=== PATIENT | female | born 1965 | race Caucasian/White ===

== ENCOUNTER 2019-04-23 00:33 | Day surgery (SDC) | payer BC, SELFPAY ==
[2019-04-17 10:43] VITALS: BMI 25.7
[2019-04-23 08:57] VITALS: BP 120/88; PULSE 99; RESP 20; TEMP 36.7; O2SAT 100
--- NOTE | 2019-04-23 08:57 | P.HP_ITS ---
History of Present Illness History of Present Illness Consent: Risks, benefits, and alternatives have been discussed and questions answered. Patient agrees to proceed with procedure. Chief complaint: Neoplasm Screening Narrative: Angela Marquez is a 54 year old female Referred for screening colonoscopy [facility] Family History Family History Mother Family history of glaucoma Father Hypertension Other Family history of alcoholism Family history of gout Family history of malignant neoplasm Family history of mental disorder Social History Social History Smoking status: Never smoker Alcohol intake: current Meds Home Medications and Allergies Home Medications Medication Instructions Recorded Confirmed Type fluoxetine 20 mg capsule 20 mg PO DAILY #90 cap 12/27/18 04/17/19 Rx benzonatate 200 mg capsule 200 mg PO TID PRN #30 cap 02/27/19 04/17/19 Rx loratadine 10 mg tablet 10 mg PO DAILY 02/27/19 04/17/19 History polyethylene glycol 3350 17 17 gm PO DAILY 02/27/19 History gram/dose oral powder ranitidine HCl 150 mg tablet 150 mg PO BID tablet 02/27/19 04/17/19 History promethazine 6.25 mg-codeine 10 5 ml PO Q6H PRN #150 ml 02/28/19 04/17/19 Rx mg/5 mL syrup Allergies Allergy/AdvReac Type Severity Reaction Status Date / Time No Known Allergies Allergy Verified 04/23/19 08:56 Exam Resp: Auscultation: clear to auscultation bilaterally Cardio: Rate: regular rate Rhythm: regular rhythm GI: GI Palp: Yes Soft to palpation and No Tenderness to palpation present (GI) Assessment and Plan Assessment and plan (1) Colon cancer screening: Code(s): Z12.11 - Encounter for screening for malignant neoplasm of colon Status: Acute Assessment and Plan: Colonoscopy with possible biopsy or polypectomy or cautery or injection of substances.
[2019-04-23] MEDS: LACTATED RINGERS 1,000 ML 150 ML IV CONT (09:02)
--- NOTE | 2019-04-23 09:37 | WPDANESEPPF ---
Anes - Initial Pre Proc Eval Procedure: Operation Date: 04/23/19 10:00 Proposed Procedures p Screening Colonoscopy - Jose Armando Vasquez MD Date/Time: 04/23/19 09:37 Surgeon: Jose Armando Vasquez MD Pre Op Diagnosis: Neoplasm Screening Patient Data Age: 54 Gender: F Height: 5 ft 5 in Weight: 69 kg Last Vital Signs Temp 98.1 F 04/23/19 08:57 Pulse 99 04/23/19 08:57 Resp 20 04/23/19 08:57 BP 120/88 04/23/19 08:57 Pulse Ox 100 04/23/19 08:57 Allergies Allergy/AdvReac Type Severity Reaction Status Date / Time No Known Allergies Allergy Verified 04/23/19 08:56 Home Medications Medication Instructions Recorded Confirmed Type fluoxetine 20 mg capsule 20 mg PO DAILY #90 cap 12/27/18 04/17/19 Rx benzonatate 200 mg capsule 200 mg PO TID PRN #30 cap 02/27/19 04/17/19 Rx loratadine 10 mg tablet 10 mg PO DAILY 02/27/19 04/17/19 History polyethylene glycol 3350 17 17 gm PO DAILY 02/27/19 History gram/dose oral powder ranitidine HCl 150 mg tablet 150 mg PO BID tablet 02/27/19 04/17/19 History promethazine 6.25 mg-codeine 10 5 ml PO Q6H PRN #150 ml 02/28/19 04/17/19 Rx mg/5 mL syrup Patient hx anesthesia problems: none Family hx anesthesia problems: none PMFSH Family History Family History Mother Family history of glaucoma Father Hypertension Other Family history of alcoholism Family history of gout Family history of malignant neoplasm Family history of mental disorder Social History Social History Smoking status: Never smoker Alcohol intake: current Anes - Eval Final PreProcedure Day of Procedure 04/23/19 09:37 Patient weight: normal Heart: regular rate and rhythm Lungs: clear to auscultation Airway: Mallampati scale class II Neurological: alert and oriented Last oral intake: >/= 8 hours ASA classification: II Emergent: no Anesthetic plan: proceed Anesthesia type and monitoring: general GIVS and standard monitoring Informed Consent: The patient's anesthetic plan and its attendant risks and benefits were discussed with the patient/family/POA. Questions were solicited and answers provided to the satisfaction of the patient/family/POA.
[2019-04-23 10:32] VITALS: BP 109/72; PULSE 88; RESP 20; O2SAT 98
[2019-04-23 10:42] VITALS: BP 106/68; PULSE 78; RESP 21; O2SAT 100
[2019-04-23 10:52] VITALS: BP 114/79; PULSE 70; RESP 19; O2SAT 98
== END 2019-04-23 11:05 | disposition home or self-care (01) ==
PROVIDERS: PCP Internal Medicine; Visit Provider Internal Medicine Gastroenterology
PROC: 0DJD8ZZ Inspection of Lower Intestinal Tract, Via Natural or Artificial Opening Endoscopic (ICD-10-PCS; CPT 45378; principal; 2019-04-23 10:00)
DX: Z12.11 Encounter for screening for malignant neoplasm of colon (principal); D12.4 Benign neoplasm of descending colon
CPT/HCPCS: 45385; 88305; J2704; J7120

== ENCOUNTER 2019-12-02 06:45 | Outpatient (NON) | payer BC, SELFPAY ==
[2019-12-02 19:00] LABS: SARS-CoV-2 RNA PCR Negative
== END 2019-12-02 06:46 ==
PROVIDERS: PCP Internal Medicine; Visit Provider Nurse Practitioner
DX: Z20.828 Contact with and (suspected) exposure to other viral communicable diseases (principal); R05 Cough
CPT/HCPCS: 87635; C9803; U0003

== ENCOUNTER 2019-12-04 07:12 | Outpatient (CLI) | payer BC, SELFPAY ==
[2019-12-04 07:54] LABS: Anion Gap 5 mmol/L (8-16); Blood Urea Nitrogen 5 mg/dL (7-17); Calcium 9.2 mg/dL (8.4-10.2); Carbon Dioxide 32 mmol/L (22-30); Chloride 103 mmol/L (98-107); Estimated Glomerular Filt Rate > 60; Glucose 97 mg/dL (65-105); Potassium 3.8 mmol/L (3.4-5.0); Sodium 140 mmol/L (137-145)
[2019-12-04 08:45] LABS: Vitamin D 25 Hydroxy 30.1 ng/mL
[2019-12-04 08:55] LABS: Cholesterol 222 mg/dL (0-200); HDL Direct 36 mg/dL; Triglycerides 388 mg/dL (<150)
[2019-12-04 09:04] LABS: LDL Cholesterol Direct 128 mg/dL
== END 2019-12-04 07:13 | disposition home or self-care (01) ==
PROVIDERS: PCP Internal Medicine; Visit Provider Nurse Practitioner
DX: E55.9 Vitamin D deficiency, unspecified (principal); I10 Essential (primary) hypertension; F32.9 Major depressive disorder, single episode, unspecified
CPT/HCPCS: 36415; 80048; 80061; 82306; 84443

== ENCOUNTER 2020-01-23 13:45 | Outpatient (CLI) | payer BC, SELFPAY ==
--- NOTE | ~2020-01-23 | MM_ITS ---
EXAMINATION: MM screening kathie BI w hong HISTORY: Screening mammogram TECHNIQUE: Craniocaudal and mediolateral oblique 3-D tomosynthesis images were obtained and synthetic 2-D images were generated. CAD analysis was submitted and interpreted. COMPARISON: No prior mammogram is available for comparison at this institution. BREAST PARENCHYMAL COMPOSITION: There are scattered areas of fibroglandular density. FINDINGS: There is no evidence of suspicious mass, calcification, or architectural distortion to sugg est malignancy in either breast. There has been no suspicious interval change. IMPRESSION: 1. No mammographic evidence of malignancy. 2. Recommend routine screening mammography in one year. BI-RADS Category 1: Negative Reviewed, dictated and finalized at location A. FOOD DELIVERY DRIVER
--- NOTE | ~2020-01-23 | DEXA_ITS ---
Bone Density Report Name: Angela Marquez Age: 54 Sex: Female Ethnicity: White Date of : 1965 Indication: postmenopausal; height loss; hysterectomy; Referring Provider: Sussy Szymanski Study: Bone densitometry was performed. Exam Date: January 23, 2020 Accession number: [id number] Bone Density: Region BMD T-score Z-score Classification AP Spine (L1-L4) 0.785 -2.4 -1.5 Osteopenia Femoral Neck (Left) 0.701 -1.3 -0.4 Osteopenia Total Hip (Left) 0.850 -0.8 -0.2 Normal Total Hip Bilateral Avg 0.804 -1.2 -0.5 Osteopenia Femoral Neck (Right) 0.613 -2.1 -1.2 Osteopenia Total Hip (Right) 0.757 -1.5 -0.9 Osteopenia World Health Organization criteria for BMD impression classify patients as: Normal (T-score at or above -1.0), Osteopenia (T-score between -1.0 and -2.5), or Osteoporosis (T-score at or below -2.5). 10-year Fracture Risk(1): Major Osteoporotic Fracture 6.7% Hip Fracture 0.8% Reported Risk Factors: [place] (), Neck BMD=0.613, BMI=28.3 (1) FRAX(R) Version 3.08. Fracture probability calculated for an untreated patient. Fracture probability may be lower if the patient has received treatment. Clinical Information Provided by Patient: Has used the following medications: Vitamin D, Calcium Has the following medical conditions: Hysterectomy Patient maximum height was 65 Menopause Age: 52 No regular weight bearing exercise Drinks caffeinated beverages Onset of menses at age 13 Number of children 0 Impression: The patient has low bone mass, based on the Total Spine T-score. The patient has an estimated ten-year risk of hip fracture of 0.8% and an estimated ten-year risk of major fracture of 6.7%, based on the WHO FRAX algorithm. Discussion: BONE DENSITY IS LOW AT ONE OR MORE SKELETAL SITES. This patient's lowest T-score is low at one or more skeletal sites. It meets the World Health Organization's (WHO) criteria for ?low bone mass? (T-score between -1.0 and -2.5). The patient's 10-year risk of fracture as calculated by FRAX is less than the threshold where pharmacological therapy is recommended by the National Osteoporosis Foundation (NOF). However, all treatment decisions require clinical judgment and consideration of individual patient factors, including patient preferences, comorbidities, previous drug use, risk factors not captured in the FRAX model (e.g., frailty, falls, vitamin D deficiency, increased bone turnover, interval significant decline in bone density) and possible under or overestimation of fracture risk by FRAX. The patient should follow a healthful lifestyle (good nutrition with adequate calcium and vitamin D, and appropriate weight-bearing exercise). Follow-Up: Consider repeating this study in 2 to 3 years to reassess this patient's status, or sooner if there is some new clinica
== END 2020-01-23 13:46 | disposition home or self-care (01) ==
LOC: ANHIMG 13:47
PROVIDERS: PCP Internal Medicine; Visit Provider Nurse Practitioner
DX: Z12.31 Encounter for screening mammogram for malignant neoplasm of breast (principal); Z78.0 Asymptomatic menopausal state; M16.0 Bilateral primary osteoarthritis of hip
CPT/HCPCS: 77063; 77067; 77080

== ENCOUNTER 2020-06-12 07:42 | Outpatient (CLI) | payer BC, SELFPAY ==
[2020-06-12 08:30] LABS: Alanine Aminotransferase 23 U/L (4-35); Albumin Level 4.5 g/dL (3.5-5.1); Alkaline Phosphatase 70 U/L (38-126); Anion Gap 6 mmol/L (8-16); Aspartate Amino Transferase 33 U/L (14-36); Bilirubin,Total 0.5 mg/dL (0.2-1.3); Blood Urea Nitrogen 15 mg/dL (7-17); Calcium 9.3 mg/dL (8.4-10.2); Carbon Dioxide 30 mmol/L (22-30); Chloride 105 mmol/L (98-107); Cholesterol 265 mg/dL (0-200); Estimated Glomerular Filt Rate > 60; Glucose 100 mg/dL (65-105); HDL Direct 45 mg/dL; Potassium 3.8 mmol/L (3.4-5.0); Sodium 141 mmol/L (137-145); Triglycerides 244 mg/dL (<150)
[2020-06-12 08:41] LABS: LDL Cholesterol Direct 164 mg/dL
[2020-06-12 09:01] LABS: Thyroid Stimulating Hormone 0.921 uIU/mL (0.465-4.680)
[2020-06-12 09:19] LABS: Vitamin D 25 Hydroxy 30.7 ng/mL
== END 2020-06-12 07:43 | disposition home or self-care (01) ==
PROVIDERS: PCP Internal Medicine; Visit Provider Nurse Practitioner
DX: Z13.220 Encounter for screening for lipoid disorders (principal); E78.1 Pure hyperglyceridemia; E55.9 Vitamin D deficiency, unspecified; Z78.0 Asymptomatic menopausal state; F32.9 Major depressive disorder, single episode, unspecified
CPT/HCPCS: 36415; 80053; 80061; 82306; 84443

== ENCOUNTER 2021-02-18 07:51 | Outpatient (CLI) | payer BC, SELFPAY ==
[2021-02-18 08:16] LABS: Cholesterol 263 mg/dL (0-200); HDL Direct 46 mg/dL; Triglycerides 167 mg/dL (<150)
[2021-02-18 08:17] LABS: Anion Gap 5 mmol/L (8-16); Blood Urea Nitrogen 11 mg/dL (7-17); Calcium 9.4 mg/dL (8.4-10.2); Carbon Dioxide 29 mmol/L (22-30); Chloride 103 mmol/L (98-107); Estimated Glomerular Filt Rate > 60; Glucose 98 mg/dL (65-110); Potassium 3.7 mmol/L (3.4-5.0); Sodium 137 mmol/L (137-145)
[2021-02-18 08:28] LABS: LDL Cholesterol Direct 175 mg/dL
[2021-02-18 08:34] LABS: Vitamin D 25 Hydroxy 38.4 ng/mL
== END 2021-02-18 07:52 | disposition home or self-care (01) ==
LOC: ANHLAB 07:54
PROVIDERS: Nurse Practitioner; PCP Internal Medicine; Visit Provider Internal Medicine
DX: I10 Essential (primary) hypertension (principal); E55.9 Vitamin D deficiency, unspecified; Z13.220 Encounter for screening for lipoid disorders
CPT/HCPCS: 36415; 80048; 80061; 82306

== ENCOUNTER 2022-02-14 08:49 | Outpatient (CLI) | payer BC, SELFPAY ==
--- NOTE | ~2022-02-14 | MM_ITS ---
EXAMINATION: MM screening kathie BI w hong HISTORY: Screening mammogram TECHNIQUE: Bilateral craniocaudal and mediolateral oblique and right .rotated lateral craniocaudal 3- D tomosynthesis images were obtained and synthetic 2-D images were generated. CAD analysis was submit flip and interpreted. COMPARISON: 01/2020 bilateral screening mammogram examination BREAST PARENCHYMAL COMPOSITION: There are scattered areas of fibroglandular density. FINDINGS: There is no evidence of suspicious mass, calcification, or architectural distortion to sugg est malignancy in either breast. There has been no suspicious interval change. IMPRESSION: 1. No mammographic evidence of malignancy. 2. Recommend routine screening mammography in one year. BI-RADS Category 1: Negative Reviewed, dictated and finalized at location A. CIATE DRAFTER
[2022-02-14 09:25] LABS: Alanine Aminotransferase 29 U/L (6-35); Albumin Level 4.3 g/dL (3.5-5.1); Alkaline Phosphatase 97 U/L (38-126); Anion Gap 5 mmol/L (8-16); Aspartate Amino Transferase 31 U/L (14-36); Bilirubin,Total 0.6 mg/dL (0.2-1.3); Blood Urea Nitrogen 12 mg/dL (7-17); Calcium 8.9 mg/dL (8.4-10.2); Carbon Dioxide 31 mmol/L (22-30); Chloride 105 mmol/L (98-107); Cholesterol 183 mg/dL (0-200); Estimated Glomerular Filt Rate > 60; Glucose 99 mg/dL (65-110); HDL Direct 46 mg/dL; Potassium 4.2 mmol/L (3.4-5.0); Sodium 141 mmol/L (137-145); Triglycerides 146 mg/dL (<150)
[2022-02-14 09:36] LABS: LDL Cholesterol Direct 98 mg/dL
== END 2022-02-14 08:50 | disposition home or self-care (01) ==
PROVIDERS: PCP Internal Medicine; Visit Provider Internal Medicine
DX: Z12.31 Encounter for screening mammogram for malignant neoplasm of breast (principal); E78.5 Hyperlipidemia, unspecified
CPT/HCPCS: 36415; 77063; 77067; 80053; 80061

== ENCOUNTER 2022-08-26 07:13 | Outpatient (CLI) | payer BC, SELFPAY ==
[2022-08-26 08:19] LABS: Alanine Aminotransferase 28 U/L (6-35); Alkaline Phosphatase 83 U/L (38-126); Anion Gap 5 mmol/L (8-16); Aspartate Amino Transferase 33 U/L (14-36); Bilirubin,Total 0.6 mg/dL (0.2-1.3); Blood Urea Nitrogen 7 mg/dL (7-17); Calcium 8.8 mg/dL (8.4-10.2); Carbon Dioxide 29 mmol/L (22-30); Chloride 107 mmol/L (98-107); Cholesterol 167 mg/dL (0-200); Estimated Glomerular Filt Rate > 60; Glucose 97 mg/dL (65-110); HDL Direct 40 mg/dL; Potassium 3.9 mmol/L (3.4-5.0); Sodium 141 mmol/L (137-145); Triglycerides 188 mg/dL (<150)
[2022-08-26 08:30] LABS: LDL Cholesterol Direct 89 mg/dL
[2022-08-26 08:55] LABS: Vitamin D 25 Hydroxy 39.7 ng/mL
== END 2022-08-26 07:14 | disposition home or self-care (01) ==
LOC: ANHLAB 07:15
PROVIDERS: PCP Family Medicine; Visit Provider Nurse Practitioner
DX: E55.9 Vitamin D deficiency, unspecified (principal); E78.5 Hyperlipidemia, unspecified
CPT/HCPCS: 36415; 80053; 80061; 82306

== ENCOUNTER 2023-01-15 08:52 | Outpatient (CLI) | payer BC, SELFPAY ==
--- NOTE | ~2023-01-15 | DEXA_ITS ---
Bone Density Report Name: MARGOT BROOKS Age: 57 Sex: Female Ethnicity: White Date of : 1965 Indication: osteopenia; height loss; hysterectomy; postmenopausal Referring Provider: JOSE A CASTREJON Study: Bone densitometry was performed. Exam Date: January 15, 2023 Accession number: [id number] Bone Density: Region BMD T-score Z-score Classification AP Spine(L1-L4) 0.748 -2.7 -1.6 Osteoporosis Femoral Neck (Left) 0.709 -1.3 -0.2 Osteopenia Total Hip (Left) 0.826 -1.0 -0.2 Normal Femoral Neck (Right) 0.615 -2.1 -1.0 Osteopenia Total Hip (Right) 0.736 -1.7 -1.0 Osteopenia Total Hip Mean 0.781 -1.4 -0.6 Osteopenia World Health Organization criteria for BMD impression classify patients as: Normal (T-score at or above -1.0), Osteopenia (T-score between -1.0 and -2.5), or Osteoporosis (T-score at or below -2.5). 10-year Fracture Risk: FRAX not reported because: Some T-score for Spine Total or Hip Total or Femoral Neck at or below -2.5 Previous Exams: Region Exam Age BMD T-score BMD Change BMD Change Date g/cm2 vs Baseline vs Previous AP Spine (L1-L4) 01/15/2023 57 0.748 -2.7 -0.037 (-4.7%) -0.037 (-4.7%) 01/23/2020 54 0.785 -2.4 Total Hip(Left) 01/15/2023 57 0.826 -1.0 -0.025 (-2.9%) -0.025 (-2.9%) 01/23/2020 54 0.850 -0.8 Total Hip(Right) 01/15/2023 57 0.736 -1.7 -0.021 (-2.8%) -0.021 (-2.8%) 01/23/2020 54 0.757 -1.5 *Denotes significance at 95% confidence level, LSC for AP Spine = 0.022 g/cm2, LSC for Total Hip = 0.027 g/cm2 Clinical Information Provided by Patient: Has the following medical conditions: Hysterectomy Patient maximum height was 65 Menopause Age: 52 No regular weight bearing exercise Does not regularly consume dairy products Onset of menses at age 14 Number of children 0 Impression: The patient has osteoporosis, based on the Total Spine T-score. The BMD for the AP Spine (L1-L4) decreased, changing by -4.7% since the last DXA exam. Discussion: INCREASED RISK OF FRACTURE. BONE DENSITY IS UNDESIRABLY LOW AT ONE OR MORE SKELETAL SITES, CONSISTENT WITH POSTMENOPAUSAL OSTEOPOROSIS. This patient's lowest T-score meets the World Health Organization's (WHO) criteria for osteoporosis at one or more sites (T-score -2.5 or below). In untreated patients, the risk of osteoporotic fracture increases approximately two-fold for each 1.0 SD decrease in T-score. Low bone density is not the only risk factor for fr
== END 2023-01-15 08:53 | disposition home or self-care (01) ==
LOC: ANHIMG 08:54
PROVIDERS: PCP Family Medicine; Visit Provider Family Medicine
DX: Z78.0 Asymptomatic menopausal state (principal); M85.89 Other specified disorders of bone density and structure, multiple sites
CPT/HCPCS: 77080

== ENCOUNTER 2023-03-03 07:24 | Outpatient (CLI) | payer BC, SELFPAY ==
[2023-03-03 07:49] LABS: Hematocrit 39.9 % (37.0-47.0); Hemoglobin 13.3 g/dL (12.0-15.0); Mean Corpuscular HGB Conc 33.3 g/dl (32-36); Mean Corpuscular Hemoglobin 31.4 pg (26-34); Mean Corpuscular Volume 94.3 fl (80-100); Mean Platelet Volume 8.3 fl (7.4-10.4); Platelet Count Result 226 k/mm3 (150-375); Red Blood Count 4.23 M/mm3 (4.2-5.4); White Blood Count 6.2 K/mm3 (4.5-10.0)
[2023-03-03 08:06] LABS: Alanine Aminotransferase 28 U/L (6-35); Albumin Level 4.2 g/dL (3.5-5.1); Alkaline Phosphatase 97 U/L (38-126); Anion Gap 6 mmol/L (8-16); Aspartate Amino Transferase 34 U/L (14-36); Bilirubin,Total 0.5 mg/dL (0.2-1.3); Blood Urea Nitrogen 7 mg/dL (7-17); Calcium 9.3 mg/dL (8.4-10.2); Carbon Dioxide 30 mmol/L (22-30); Chloride 105 mmol/L (98-107); Cholesterol 210 mg/dL (0-200); Estimated Glomerular Filt Rate > 60; Glucose 100 mg/dL (65-110); HDL Direct 45 mg/dL; Sodium 141 mmol/L (137-145); Triglycerides 193 mg/dL (<150)
[2023-03-03 08:17] LABS: LDL Cholesterol Direct 126 mg/dL
== END 2023-03-03 07:25 | disposition home or self-care (01) ==
LOC: ANHLAB 07:26
PROVIDERS: PCP Family Medicine; Visit Provider Family Medicine
DX: Z00.00 Encounter for general adult medical examination without abnormal findings (principal)
CPT/HCPCS: 36415; 80053; 80061; 85027

== ENCOUNTER → 2023-03-06 08:25 | Outpatient (CLI) | payer BC, SELFPAY ==
--- NOTE | ~2023-03-06 | XR_ITS ---
XR abdomen obstructive series DATE: 03/06/2023 08:59 INDICATION: Diarrhea TECHNIQUE: Supine and upright AP views COMPARISON: 03/15/2018 CT abdomen pelvis FINDINGS: There is severe rotatory dextroscoliosis of the thoracic spine. There is osteopenia. The lower lung zones are clear. Heart size appears normal. No pleural effusion is noted. The psoas shadows are intact. No visceromegaly is evident. Mild abdominal aortic calcification is not ed. No other significant abnormal calcification is identified. No bowel obstruction or intraperitoneal free air is detected. IMPRESSION: No evidence of bowel obstruction or free air Reviewed, dictated and finalized at Location A. Reviewed, dictated and finalized at location L. NICAL ADMINISTRATIVE ASSISTANT
== END ==
PROVIDERS: PCP Family Medicine; Visit Provider Family Medicine
DX: R19.7 Diarrhea, unspecified (principal)
CPT/HCPCS: 74019

== ENCOUNTER 2023-08-31 08:11 | Outpatient (CLI) | payer BC, SELFPAY ==
[2023-08-31 09:14] LABS: Alanine Aminotransferase 25 U/L (6-35); Albumin Level 4.6 g/dL (3.5-5.1); Alkaline Phosphatase 86 U/L (38-126); Anion Gap 10 mmol/L (4-12); Aspartate Amino Transferase 28 U/L (14-36); Bilirubin,Total 0.7 mg/dL (0.2-1.3); Blood Urea Nitrogen 11 mg/dL (7-17); Calcium 9.2 mg/dL (8.4-10.2); Carbon Dioxide 27 mmol/L (22-30); Chloride 105 mmol/L (98-107); Estimated Glomerular Filt Rate > 60; Glucose 101 mg/dL (65-110); Potassium 3.7 mmol/L (3.4-5.0); Sodium 142 mmol/L (137-145)
[2023-08-31 09:31] LABS: Vitamin D 25 Hydroxy 34.4 ng/mL
== END 2023-08-31 08:12 | disposition home or self-care (01) ==
LOC: ANHLAB 08:12
PROVIDERS: PCP Family Medicine; Visit Provider Family Medicine
DX: Z00.00 Encounter for general adult medical examination without abnormal findings (principal); I10 Essential (primary) hypertension; K21.9 Gastro-esophageal reflux disease without esophagitis; E28.2 Polycystic ovarian syndrome; F32.9 Major depressive disorder, single episode, unspecified
CPT/HCPCS: 36415; 80053; 82306

== ENCOUNTER 2023-09-03 14:49 | Outpatient (CLI) | payer BC, SELFPAY ==
[2023-09-03 15:31] LABS: Hematocrit 40.4 % (37.0-47.0); Hemoglobin 13.7 g/dL (12.0-15.0); Mean Corpuscular HGB Conc 33.9 g/dl (32-36); Mean Corpuscular Hemoglobin 31.2 pg (26-34); Platelet Count Result 252 k/mm3 (150-375); Red Blood Count 4.39 M/mm3 (4.2-5.4); Red Cell Distribution Width 12.4 % (11.5-14.5); White Blood Count 5.9 K/mm3 (4.5-10.0)
== END 2023-09-03 14:50 | disposition home or self-care (01) ==
LOC: ANHLAB 14:53
PROVIDERS: PCP Family Medicine; Visit Provider Family Medicine
DX: Z00.00 Encounter for general adult medical examination without abnormal findings (principal); E28.2 Polycystic ovarian syndrome; I10 Essential (primary) hypertension; F32.9 Major depressive disorder, single episode, unspecified; K21.9 Gastro-esophageal reflux disease without esophagitis
CPT/HCPCS: 36415; 85027

== ENCOUNTER 2023-10-04 13:49 | Outpatient (CLI) | payer BC, SELFPAY ==
--- NOTE | 2023-10-04 14:22 | ECG_ITS ---
Test Date: 2023-10-04 14:28:10 Measurements Intervals [place] Rate: 90 P: 51 MI: 157 QRS: 20 QRSD: 86 T: 34 QT: 358 QTc: 439 Interpretive Statements SINUS RHYTHM NORMAL ECG No previous ECG available for comparison Electronically Signed On 10-05-2023 14:36:42 CDT by Abraham Quinonez M.D.
[2023-10-04 15:35] LABS: Add Urine Microscopic? NO; Appearance Urine Clear (Clear); Bilirubin Urine Negative (Negative); Blood Urine Negative (Negative); Color Urine Yellow (Yellow); Glucose Urine UA Negative (Negative); Ketones Urine Negative (Negative); Leukocyte Esterase Ur Negative LEU/UL (Negative); Nitrate Urine Negative (Negative); Protein Urine Negative (Negative); Specific Grav Ur 1.008 (1.001-1.035); Urobilinogen Urine 0.2 mg/dL (<2.0); pH Urine 8.5 (5.0-9.0)
== END 2023-10-04 13:50 | disposition home or self-care (01) ==
PROVIDERS: PCP Family Medicine; Visit Provider Nurse Practitioner Family
DX: N39.0 Urinary tract infection, site not specified (principal); R00.0 Tachycardia, unspecified; R42 Dizziness and giddiness
CPT/HCPCS: 81003; 87086; 87088; 93005

== ENCOUNTER 2024-03-03 08:56 | Outpatient (CLI) | payer BC, SELFPAY ==
[2024-03-03 09:28] LABS: Hematocrit 41.2 % (37.0-47.0); Mean Corpuscular Hemoglobin 31.9 pg (26-34); Mean Corpuscular Volume 93.8 fl (80-100); Mean Platelet Volume 8.9 fl (7.4-10.4); Platelet Count Result 248 k/mm3 (150-375); Red Blood Count 4.39 M/mm3 (4.2-5.4); Red Cell Distribution Width 11.9 % (11.5-14.5); White Blood Count 5.3 K/mm3 (4.5-10.0)
[2024-03-03 09:41] LABS: Alanine Aminotransferase 37 U/L (6-35); Albumin Level 4.2 g/dL (3.5-5.1); Alkaline Phosphatase 72 U/L (38-126); Anion Gap 8 mmol/L (4-12); Aspartate Amino Transferase 31 U/L (14-36); Bilirubin,Total 0.8 mg/dL (0.2-1.3); Blood Urea Nitrogen 9 mg/dL (7-17); Calcium 8.9 mg/dL (8.4-10.2); Carbon Dioxide 27 mmol/L (22-30); Chloride 106 mmol/L (98-107); Cholesterol 184 mg/dL (0-200); Estimated Glomerular Filt Rate > 60; Glucose 98 mg/dL (65-110); HDL Direct 46 mg/dL; Potassium 3.8 mmol/L (3.4-5.0); Sodium 141 mmol/L (137-145); Triglycerides 172 mg/dL (<150)
[2024-03-03 09:51] LABS: LDL Cholesterol Direct 97 mg/dL
[2024-03-03 10:19] LABS: Vitamin D 25 Hydroxy 29.8 ng/mL
== END 2024-03-03 08:57 | disposition home or self-care (01) ==
LOC: ANHLAB 08:57
PROVIDERS: PCP Family Medicine; Visit Provider Family Medicine
DX: Z00.00 Encounter for general adult medical examination without abnormal findings (principal); I10 Essential (primary) hypertension; F32.9 Major depressive disorder, single episode, unspecified; E28.2 Polycystic ovarian syndrome; E55.9 Vitamin D deficiency, unspecified
CPT/HCPCS: 36415; 80053; 80061; 82306; 85027

== ENCOUNTER 2024-06-23 08:41 | Outpatient (CLI) | payer BC, SELFPAY ==
--- OUTSIDE RECORDS SUMMARY | 2024-06-23 09:02 | XMS_ITS | Encounter Summary ---
Author Organization [facility] Address [facility] [place] [address] Care Team Providers Care Mutuel Machine Operator Name Role Phone Humble Escalante MD Primary Care Provider [phone] Pat Cardoso RN Unavailable Unavail Manolo Weber DO Primary Care Provider [phone] Reason for Visit * Reason Onset Date Comments Appointment 02/01/2018 Encounter Details Date Type Department Care Team (Late st Contact Info) Description 02/01/2018 Telephone [facility] [address] [place], [place] [id number] Dashawn Dewitt MD [address] [facility] [address] [place] [address] Appointment Social History Tobacco Use Types Packs/Day Years Used Date Smoking Tobacco: Light Smoker Cigarettes Smokeless Tobacco: Never Alcohol Use Standard Drinks/Week Comments No 0 (1 standard drink = 0.6 oz pur e alcohol) Comments No Sex and Gender Information Value Date Recorded Sex Assigned at Not on file Legal Sex Female 10:33 AM ABATTOIR MANAGER Gender Identity Not on file Sexual Orientation Not on file documented as of this encounter Functional Status * Is person deaf or have serious hearing difficulty? Answer Date of Assessment Author No 03/27/2017 3:15 PM ABATTOIR MANAGER Tania Lam RN * Is person blind or have serious difficulty seeing? Answer Date of Assessment Author No 03/27/2017 3:15 PM Tania Mcfarlane RN * Does person have serious difficulty walking/climbing stairs? Answer Date of Assessment Author No 03/27/2017 3:15 PM Tania Mcfarlane RN * Does person have difficulty dressing/bathing? Answer Date of Assessment Author No 03/27/2017 3:15 PM Tania Mcfarlane RN * Does person have difficulty doing errands alone? Answer Date of Assessment Author No 03/27/2017 3:15 PM Tania Mcfarlane RN documented as of this encounter Mental Status * Does person have difficulty concentrating/remembering/making decisions? Answer Entry Date Author No 03/27/2017 3:15 PM Tania Mcfarlane RN documented in this encounter Miscellaneous Notes * Telephone Encounter - Helena Reddy - 02/01/2018 9:59 AM CST Pt called in, she is concerned she has a hernia or a growth and has a follow up appt scheduled or April of 2018 but she wants to come in sooner, wants to speak with a nurse about her concerns. CB# [phone] TOIR MANAGER documented in this encounter Plan of Treatment Not on file documented as of this encounter Visit Diagnoses Not on filedocumented in this encounter Care Teams Mutuel Machine Operator Relationship Specialty Start Date End Date Humble Escalante MD [address] [place] [address] PCP - General Internal Medicine 03/26/17 05/15/18 Manolo Walters DO [address] [place] [address] PCP - General 05/16/18 Pat Cardoso, RN Registered Nurse 03/27/17 documented as of this encounter
--- OUTSIDE RECORDS SUMMARY | 2024-06-23 09:02 | XMS_ITS | Clinical Summary ---
Author Organization [facility] Address [address] [place] [address] Care Team Providers Care Fruit Buying Grader Name Role Phone Pat Cardoso RN Unavailable Unavailab Manolo Weber DO Primary Care Provider [phone] Source Comments [facility],non-owned Affiliates and Associated Physician Practices is amultiple site organization consisting of ambulatory clinics and hospital sitesin [place], [place], [place] and [place]. This disclosure is being madepursuant to the Care Everywhere program and may not contain all information available regarding this patient. Last updated 17.[facility] Allergies No known active allergies Medications * Be aware that medications may not be up to date on this document. Alwaysverify current medications with the patient. 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 Overview (07/31/2019): Overview: Right Ovary S/P NEEL-BSO (total abdominal hysterectomy and bilateral salpingo-oophorectomy) 04/05/2017 Diagnosis unknown 03/27/2017 GERD (gastroesophageal reflux disease) 8 Kidney stone 10/02/2002 Multiple joint pain 08/03/2000 Ovarian tumor Social History Tobacco Use Types Packs/Day Years Used Date Smoking Tobacco: Former Cigarettes Smokeless Tobacco: Never Tobacco Cessation:Ready to Q uit: No; Counseling Given: Yes Comments:1 year ago Alcohol Use Standard Drinks/Week Comments No 0 (1 standard drink = 0.6 oz pur e alcohol) Comments No Sex and Gender Information Value Date Recorded Sex Assigned at Not on file Legal Sex Female 10:33 AM SHIP FASTENER Gender Identity Not on file Sexual Orientation Not on file Last Filed Vital Signs Vital Sign Reading Time Taken Comments Blood Pressure 122/80 07/31/2019 1:06 PM CDT Pulse 107 03/29/2017 4:00 PM SHIP FASTENER Temperature 36.9 C (98.4 F) 03/29/2017 4:00 PM SHIP FASTENER Respiratory Rate 20 03/29/2017 4:00 PM SHIP FASTENER Oxygen Saturation 97% 03/29/2017 4:00 PM SHIP FASTENER Inhaled Oxygen Concentration - - Weight 71.2 kg (157 lb) 07/31/2019 1:06 PM CDT Height 162.6 cm (5' 4 ) 07/31/2019 1:06 PM CDT Body Mass Index 26.95 07/31/2019 1:06 PM CDT Plan of Treatment Health Maintenance Due Date Last Done Comments COLOGUARD (AGES 45-75) - COL ON CA SCREENING 1965 COLON MONITORING 1965 COLONOSCOPY - COLON CA SCREENING 1967 CT COLONOGRAPHY - COLON CA SCREENING 1965 Colorectal Cancer Screening 1965 FIT - COLON CA SCREENING 1965 FLEX SIG - COLON CA SCREENING 1965 LIPID TESTING 1965 MAMMOGRAM 1965 HIV SCREENING 04/21/1982 HEPATITIS C SCREENING 04/17/1985 DTAP/TDAP/TD VACCINES (1 - Tdap) 04/21/1986 HEPATITIS B VACCINE (1 of 3 - 19+ 3-dose series) 04/21/1986 PNEUMOCOCCAL VACCINE 50+ (1 of 1 - PCV) 04/21/2017 ZOSTER VACCINE (1 of 2) 04/21/2017 SCREENING FOR DIABETES 07/31/2019 COVID-19 VACCINE (2023-2 5 season) 2023 DEPRESSION SCREENING 02/20/2024 INFLUENZA VACCINE (Season Ended) 2024 HIB VACCINE Aged Out No longer eligi ble based on patient's age to complete this topic HPV VACCINE Aged Out No longer eligi ble based on patient's age to complete this topic MENINGOCOCCAL (Group B) VACC INE SHARED DECISION-MAKING Aged Out No longer eligibl e based on patient's age to complete this topic MENINGOCOCCAL GROUPS A/C/Y/W VACCINE Aged Out No longer eligible b ased on patient's age to complete this topic Insurance ANTHEM ANTHEM Advance Directives * Full Code (Latest Code Status on File) Date Activated Date Inactivated Comments 03/27/2017 2:25 PM 03/29/2017 5:27 PM Care Teams Fruit Buying Grader Relationship Specialty Start Date End Date Manolo Walters DO [address] [place] [id number] PCP - General 05/16/18 Pat Cardoso, RN Registered Nurse 03/27/17
--- OUTSIDE RECORDS SUMMARY | 2024-06-23 09:02 | XMS_ITS | Clinical Summary ---
Author Organization [facility] Address [address] [place] [address] Care Team Providers Care Internet Programmer Name Role Phone Unavailable Primary Care Provider Unavailabl e Social History Tobacco Use Types Packs/Day Years Used Date Smoking Tobacco: Never Assessed Comments Unknown Sex and Gender Information Value Date Recorded Sex Assigned at Not on file Legal Sex Female 10:22 PM CLINICAL DOCUMENTATION CLERK Gender Identity Not on file Sexual Orientation Not on file Plan of Treatment Health Maintenance Due Date Last Done Comments Cervical Cancer Screening Pa p Smear (Age 30 to 64) Every 3 Years 1965 Colorectal Cancer Screening Colonoscopy (10 Years) 1965 Annual Physical 04/21/1970 Hepatitis C 04/21/1985 DTaP, Tdap and Td Vaccines ( 1 - Tdap) 04/21/1986 Hepatitis B Vaccines (1 of 3 - 19+ 3-dose series) 04/21/1986 Cervical Cancer Screening Pa p with HPV Testing (Age 30 to 64) Every 5 Years 04/21/1997 Cervical Cancer Screening with HPV 04/21/1997 Mammogram Screening 2007 Pneumococcal Vaccine: 50+ Ye ars (1 of 1 - PCV) 04/21/2017 Zoster Vaccines (1 of 2) 04/21/2017 COVID-19 Vaccine (2023-2 5 season) 2023 Meningococcal B Vaccine Aged Out No l onger eligible based on patient's age to complete this topic Meningococcal Vaccine Aged Out No keira eladio eligible based on patient's age to complete this topic RSV Immunizations Under 20 Months Aged Out No longer eligible based on patient's age to complete this topic
[2024-06-23 09:41] LABS: Alanine Aminotransferase 30 U/L (6-35); Albumin Level 4.5 g/dL (3.5-5.1); Alkaline Phosphatase 71 U/L (38-126); Aspartate Amino Transferase 33 U/L (14-36); Bilirubin,Total 0.6 mg/dL (0.2-1.3)
== END 2024-06-23 08:42 | disposition home or self-care (01) ==
LOC: ANHLAB 08:43
PROVIDERS: PCP Family Medicine; Visit Provider Family Medicine
DX: Z00.00 Encounter for general adult medical examination without abnormal findings (principal); I10 Essential (primary) hypertension; R74.8 Abnormal levels of other serum enzymes; E55.9 Vitamin D deficiency, unspecified
CPT/HCPCS: 36415; 80076

== ENCOUNTER 2024-09-16 08:16 | Outpatient (CLI) | payer BC, SELFPAY ==
--- OUTSIDE RECORDS SUMMARY | 2024-09-16 08:21 | XMS_ITS | Encounter Summary ---
Author Organization [facility] Address [facility] [place] [address] Care Team Providers Care Children'S Entertainer Name Role Phone Humble Escalante MD Primary Care Provider [phone] Pat Cardoso RN Unavailable Unavail Manolo Weber DO Primary Care Provider [phone] Reason for Visit * Reason Onset Date Comments Appointment 02/01/2018 Encounter Details Date Type Department Care Team (Late st Contact Info) Description 02/01/2018 Telephone [facility] [address] [place], [place] [id number] Dashawn Dewitt MD [address] [facility] [address] [place] [address] Appointment Social History Tobacco Use Types Packs/Day Years Used Date Smoking Tobacco: Light Smoker Cigarettes Smokeless Tobacco: Never Alcohol Use Standard Drinks/Week Comments No 0 (1 standard drink = 0.6 oz pur e alcohol) Comments No Sex and Gender Information Value Date Recorded Sex Assigned at Not on file Legal Sex Female 10:33 AM CARDIOLOGY CLINICAL NURSE SPECIALIST Gender Identity Not on file Sexual Orientation Not on file documented as of this encounter Functional Status * Is person deaf or have serious hearing difficulty? Answer Date of Assessment Author No 03/27/2017 3:15 PM CARDIOLOGY CLINICAL NURSE SPECIALIST Tania Lam RN * Is person blind [...] with a nurse about her concerns. CB# [phone] IOLOGY CLINICAL NURSE SPECIALIST documented in this encounter Plan of Treatment Not on file documented as of this encounter Visit Diagnoses Not on filedocumented in this encounter Care Teams Children'S Entertainer Relationship Specialty Start Date End Date Humble Escalante MD [address] [place] [address] PCP - General Internal Medicine 03/26/17 05/15/18 Manolo Walters DO [address] [place] [address] PCP - General 05/16/18 Pat Cardoso, RN Registered Nurse 03/27/17 documented as of this encounter
--- OUTSIDE RECORDS SUMMARY | 2024-09-16 08:21 | XMS_ITS | Clinical Summary ---
Author Organization [facility] Address [address] [place] [address] Care Team Providers Care Crnp Name Role Phone Unavailable Primary Care Provider Unavailabl e Social History Tobacco Use Types Packs/Day Years Used Date Smoking Tobacco: Never Assessed Comments Unknown Sex and Gender Information Value Date Recorded Sex Assigned at Not on file Legal Sex Female 10:22 PM END LATHE OPERATOR Gender Identity Not on file Sexual Orientation [...]
--- OUTSIDE RECORDS SUMMARY | 2024-09-16 08:21 | XMS_ITS | Clinical Summary ---
Author Organization [facility] Address [address] [address] Care Team Providers Care Turntable Man Name Role Phone Pat Cardoso RN Unavailable Unavailab Manolo Weber DO Primary Care Provider [phone] Source Comments [facility],non-owned Affiliates and Associated Physician Practices is amultiple site organization consisting of ambulatory clinics and hospital sitesin [place], [place], [place] and [place]. This disclosure is being madepursuant to the Care Everywhere program and may not contain all information available regarding this patient. 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[employer] Respiratory Rate 20 03/29/2017 4:00 PM DIRECTOR OF [employer]ITATIVE [employer]EARCH Oxygen Saturation 97% 03/29/2017 4:00 PM DIRECTOR OF [employer]ITAT[employer] Inhaled Oxygen Concentration - - Weight 71.2 kg (157 lb) 07/31/2019 1:06 PM CDT Height 162.6 cm (5' 4) 07/31/2019 1:06 PM CDT Body Mass Index [...] season) 2023 DEPRESSION SCREENING 02/20/2024 INFLUENZA VACCINE (#1) 2024 HIB VACCINE Aged Out No longer [...] 2:25 PM 03/29/2017 5:27 PM Care Teams Turntable Man Relationship Specialty Start Date End Date Manolo Walters DO [address] [place] [id number] PCP - General 05/16/18 Pat Cardoso, RN Registered Nurse 03/27/17
[2024-09-16 08:42] LABS: Hematocrit 40.0 % (37.0-47.0); Hemoglobin 13.6 g/dL (12.0-15.0); Immature Granulocyte Percent A 0.2 % (0-0.5); Lymphocytes Absolute Auto 2.30 K/mm3 (0.9-3.2); Mean Corpuscular HGB Conc 34.0 g/dl (32-36); Mean Corpuscular Hemoglobin 31.3 pg (26-34); Mean Corpuscular Volume 92.2 fl (80-100); Nucleated Red Blood Cells Absolute Auto 0.000 K/mm3 (0.0-0.012); Nucleated Red Blood Cells Perc 0.0 % (0.0-0.2); Platelet Count Result 236 k/mm3 (150-375); Red Blood Count 4.34 M/mm3 (4.2-5.4); White Blood Count 5.7 K/mm3 (4.5-10.0)
[2024-09-16 09:11] LABS: Alanine Aminotransferase 24 U/L (6-35); Albumin Level 4.1 g/dL (3.5-5.1); Alkaline Phosphatase 75 U/L (38-126); Anion Gap 7 mmol/L (4-12); Aspartate Amino Transferase 34 U/L (14-36); Bilirubin,Total 0.5 mg/dL (0.2-1.3); Blood Urea Nitrogen 11 mg/dL (7-17); Calcium 9.0 mg/dL (8.4-10.2); Carbon Dioxide 27 mmol/L (22-30); Chloride 105 mmol/L (98-107); Estimated Glomerular Filt Rate > 60; Glucose 99 mg/dL (65-110); Potassium 3.5 mmol/L (3.4-5.0); Sodium 139 mmol/L (137-145); Total Protein 7.0 g/dL (6.3-8.2)
== END 2024-09-16 08:17 | disposition home or self-care (01) ==
LOC: ANHLAB 08:18
PROVIDERS: PCP Family Medicine; Visit Provider Family Medicine
DX: Z00.00 Encounter for general adult medical examination without abnormal findings (principal); I10 Essential (primary) hypertension; R74.8 Abnormal levels of other serum enzymes; E55.9 Vitamin D deficiency, unspecified
CPT/HCPCS: 36415; 80053; 82306; 85025